=== PATIENT | female | born 1940 | race Two or more races ===

== ENCOUNTER 2018-05-30 12:53 | Emergency (ER) | payer OTHER, MEDICAID ==
[~2018-05-30] VITALS: Ht 152.4 cm; Wt 55.0 kg
[2018-05-30] MEDS ORDERED: ACETAMINOPHEN 325MG TABLET PO ONE (13:45)
[2018-05-30 15:30] VITALS: BP 145/72
== END 2018-05-30 16:00 | disposition home or self-care (01) ==
LOC: ER 12:53
DX: S80.02XA Contusion of left knee, initial encounter (principal); V01.00XA Pedestrian on foot injured in collision with pedal cycle in nontraffic accident, initial encounter; Y93.01 Activity, walking, marching and hiking; Y92.410 Unspecified street and highway as the place of occurrence of the external cause; I10 Essential (primary) hypertension; M25.462 Effusion, left knee; E78.00 Pure hypercholesterolemia, unspecified
CPT/HCPCS: 73562; 73590; 99283

== ENCOUNTER 2022-11-29 06:47 | Emergency (ER) | payer OTHER, MEDICAID ==
[~2022-11-29] VITALS: Ht 157.5 cm; Wt 62.4 kg
[2022-11-29 07:00] VITALS: BP 174/67; PULSE 78; RESP 18; TEMP 98.2; O2SAT 97
[2022-11-29 09:17] LABS: CLARITY URINE CLEAR (CLEAR); COLOR URINE YELLOW (YELLOW); GLUCOSE URINE NEGATIVE (NEGATIVE); KETONES URINE NEGATIVE (NEGATIVE); LEUKOCYTE ESTERASE URINE 2+ (NEGATIVE); NITRITE URINE NEGATIVE (NEGATIVE); OCCULT BLOOD URINE NEGATIVE (NEGATIVE); PH URINE 6.5 (4.5-8.0); PROTEIN URINE NEGATIVE (NEGATIVE); SPECIFIC GRAVITY URINE 1.019 (1.005-1.030)
[2022-11-29 09:37] LABS: SQUAMOUS EPITHELIAL CELL URINE 1+ /lpf (RARE/1+)
[2022-11-29 09:38] LABS: BACTERIA URINE TRACE
[2022-11-29 09:40] LABS: RBC URINE NONE SEEN /hpf (0-2)
[2022-11-29] MEDS ORDERED: LIDO700A30 TP (15:22)
== END 2022-11-29 15:33 | disposition home or self-care (01) ==
LOC: ER 06:47
DX: M48.56XA Collapsed vertebra, not elsewhere classified, lumbar region, initial encounter for fracture (principal); E78.00 Pure hypercholesterolemia, unspecified; I10 Essential (primary) hypertension; Z90.710 Acquired absence of both cervix and uterus; Z90.49 Acquired absence of other specified parts of digestive tract
CPT/HCPCS: 72100; 81003; 99284